=== PATIENT | female | born 1985 | race Caucasian/White ===

== ENCOUNTER 2019-05-21 16:26 | Emergency (ER) | payer MEDICAID ==
[~2019-05-21] VITALS: Ht 160 cm; Wt 89.7 kg
[2019-05-21 16:34] VITALS: Ht 160 cm; Wt 89.7 kg
[2019-05-21] MEDS ORDERED: VISTARIL25 MG PO (18:33)
[2019-05-21 19:03] VITALS: BP 125/68
== END 2019-05-21 19:04 | disposition home or self-care (01) ==
LOC: D.ER 16:26
DX: F41.9 Anxiety disorder, unspecified (principal)

== ENCOUNTER 2019-06-14 14:55 | Emergency (ER) | payer MEDICAID ==
[~2019-06-14] VITALS: Ht 160 cm; Wt 98.4 kg
[~2019-06-14 14:55] MED LIST: VISTARIL25 MG PO
[2019-06-14 15:07] VITALS: Ht 160 cm; Wt 98.4 kg
[2019-06-14] MEDS ORDERED: FOLBIC RF TABL1 EACH PO (15:08)
[2019-06-14] MEDS ORDERED: MULTI-DAY VITAM1 TAB (15:09)
[2019-06-14 15:48] LABS: BASOPHILS 0.1 % (0-2); EOSINOPHILS 2.5 % (0-7); HEMATOCRIT 41.2 % (36.0-48.0); HEMOGLOBIN 13.8 g/dL (12-16); IMMATURE GRANULOCYTES 0.1 % (0-5); LYMPHOCYTES 32.1 % (15-50); MCH 31.1 pg (26.0-34.0); MCHC 33.5 g/dL (31.0-37.0); MCV 92.8 fL (80.0-100.0); MEAN PLATELET VOLUME 9.7 fL (7.4-10.4); MONOCYTES 7.1 % (2-11); NEUTROPHILS 58.1 % (40-80); PLATELET COUNT 289 10x3/uL (130-400); RBC 4.44 10x6/uL (4.00-5.40); RDW 14.1 % (11.5-14.5); WBC 7.1 10x3/uL (4.8-10.8)
[2019-06-14 15:52] LABS: APPEARANCE CLEAR (CLEAR); COLOR YELLOW (YELLOW)
[2019-06-14 15:53] LABS: BILIRUBIN NEGATIVE (NEGATIVE); GLUCOSE NEGATIVE (NEGATIVE); KETONE NEGATIVE (NEGATIVE); NITRITE NEGATIVE (NEGATIVE); PROTEIN NEGATIVE (NEGATIVE); UROBILINOGEN NORMAL (NORMAL)
[2019-06-14 15:55] LABS: HCG URINE NEGATIVE (NEGATIVE)
[2019-06-14 16:02] LABS: ALBUMIN 3.6 g/dL (3.4-5.0); ALKALINE PHOSPHATASE 62 U/L (46-116); ALT (SGPT) 17 U/L (10-68); BILIRUBIN - TOTAL 0.17 mg/dL (0.2-1.3); CALC OSMOLALITY 277 mosm/kg (275-300); CALCIUM 8.3 mg/dL (8.5-10.1); CARBON DIOXIDE 28.9 mmol/L (21.0-32.0); CHLORIDE - SERUM 105 mmol/L (98-107); CREATININE - SERUM 0.8 mg/dL (0.6-1.3); GLUCOSE 117 mg/dL (74-106); POTASSIUM - SERUM 4.8 mmol/L (3.5-5.1); PROTEIN - SERUM 7.1 g/dL (6.4-8.2); SODIUM 139 mmol/L (136-145); UREA NITROGEN 11 mg/dL (7-18); eGFR NON AFRICAN AMERICAN 87 mL/min (90-120)
[2019-06-14 16:21] LABS: AMYLASE - SERUM 36 U/L (25-115); LIPASE 138 U/L (73-393); TROPONIN-I < 0.017 ng/mL (0.000-0.060)
[2019-06-14 17:22] LABS: HCG SERUM NEGATIVE (NEGATIVE)
[2019-06-14] MEDS ORDERED: DULCOLAX STOOL100 MG PO (17:34)
[2019-06-14 18:01] VITALS: BP 112/75
== END 2019-06-14 18:01 | disposition home or self-care (01) ==
LOC: D.ER 14:55
PROVIDERS: Family Medicine
DX: K59.00 Constipation, unspecified (principal)

== ENCOUNTER 2019-07-05 20:32 | Emergency (ER) | payer MEDICAID ==
[~2019-07-05 20:32] MED LIST changes: +DULCOLAX STOOL100 MG PO; +FOLBIC RF TABL1 EACH PO; +MULTI-DAY VITAM1 TAB
[2019-07-05 20:47] VITALS: Ht 160 cm
[2019-07-05 21:10] LABS: APPEARANCE CLEAR (CLEAR); BILIRUBIN NEGATIVE (NEGATIVE); COLOR STRAW (YELLOW); GLUCOSE NEGATIVE (NEGATIVE); KETONE NEGATIVE (NEGATIVE); NITRITE NEGATIVE (NEGATIVE); PROTEIN NEGATIVE (NEGATIVE); UROBILINOGEN NORMAL (NORMAL)
[2019-07-05 21:12] LABS: BACTERIA FEW /hpf (NONE SEEN); HCG URINE NEGATIVE (NEGATIVE); RED CELLS - URINE 0-5 /hpf (0-5); WHITE CELLS - URINE OCC /hpf (0-5)
[2019-07-05 21:44] LABS: BASOPHILS 0.1 % (0-2); EOSINOPHILS 2.1 % (0-7); HEMATOCRIT 41.2 % (36.0-48.0); IMMATURE GRANULOCYTES 0.4 % (0-5); LYMPHOCYTES 29.8 % (15-50); MCH 31.5 pg (26.0-34.0); MCV 92.8 fL (80.0-100.0); MEAN PLATELET VOLUME 9.9 fL (7.4-10.4); MONOCYTES 7.8 % (2-11); NEUTROPHILS 59.8 % (40-80); PLATELET COUNT 274 10x3/uL (130-400); RBC 4.44 10x6/uL (4.00-5.40); RDW 14.3 % (11.5-14.5); WBC 9.4 10x3/uL (4.8-10.8)
[2019-07-05 22:05] LABS: ALBUMIN 3.5 g/dL (3.4-5.0); ALKALINE PHOSPHATASE 54 U/L (46-116); ALT (SGPT) 26 U/L (10-68); AMYLASE - SERUM 34 U/L (25-115); BILIRUBIN - TOTAL 0.16 mg/dL (0.2-1.3); CALC OSMOLALITY 281 mosm/kg (275-300); CALCIUM 8.6 mg/dL (8.5-10.1); CARBON DIOXIDE 26.2 mmol/L (21.0-32.0); CHLORIDE - SERUM 107 mmol/L (98-107); CREATININE - SERUM 0.7 mg/dL (0.6-1.3); GLUCOSE 84 mg/dL (74-106); LIPASE 143 U/L (73-393); POTASSIUM - SERUM 3.9 mmol/L (3.5-5.1); PROTEIN - SERUM 6.8 g/dL (6.4-8.2); SODIUM 142 mmol/L (136-145); UREA NITROGEN 12 mg/dL (7-18); eGFR NON AFRICAN AMERICAN > 90 mL/min (90-120)
[2019-07-05 22:06] LABS: TROPONIN-I < 0.017 ng/mL (0.000-0.060)
[2019-07-06] MEDS ORDERED: MIRALAX17 GM PO (00:35)
[2019-07-06 00:43] VITALS: BP 157/66
== END 2019-07-06 00:45 | disposition home or self-care (01) ==
LOC: D.ER 20:32
PROVIDERS: Family Medicine
DX: K59.00 Constipation, unspecified (principal)